=== PATIENT | male | born 1955 | race Caucasian/White ===

== ENCOUNTER 2021-08-17 17:33 | Inpatient (IN) ==
[2021-08-17 19:03] LABS: Urine Benzodiazepine Screen None Detected (None Detect); Urine Cannabinoids Screen None Detected (None Detect); Urine Opiates Screen None Detected (None Detect)
[2021-08-17 19:23] LABS: Urine Appearance Clear; Urine Bacteria Absent (Absent); Urine Bilirubin Negative (Negative); Urine Blood 2+ (Negative); Urine Color Yellow; Urine Glucose Negative (Negative); Urine Ketones Trace (Negative); Urine Nitrite Negative (Negative); Urine Protein Negative (Negative); Urine Red Blood Cell Trace(0-2/hpf) (Absent); Urine Specific Gravity 1.004 (1.002-1.030); Urine Urobilinogen Negative (Negative); Urine White Blood Cell Trace(0-5/hpf) (Absent)
[2021-08-17 22:32] LABS: ABS Eosinophils 0.1 10^3/ul (0-0.6); ABS Lymphocytes 1.8 10^3/ul (1.0-4.8); ABS Monocytes 0.7 10^3/ul (0-0.8); ABS Neutrophils 4.1 10^3/ul (1.5-7.7); Eosinophil % 1.4 %; Hematocrit 49 % (42-52); Hemoglobin 17.2 g/dL (14.0-18.0); Lymphocyte % 26.8 %; Mean Corpuscular HGB Conc 35 g/dL (31-36); Mean Corpuscular Hemoglobin 30 pg (27-31); Mean Corpuscular Volume 86 fL (80-94); Mean Platelet Volume 7.9 fL (7.4-10.4); Nucleated Red Blood Cells % 0.2; Platelet Count 177 10^3/uL (150-450); Red Blood Count 5.72 10^6 /uL (4.18-5.48); Red Cell Distribution Width 13 % (10-15); White Blood Count 6.7 10^3/uL (3.5-10.8)
[2021-08-17 22:54] LABS: ALT 29 U/L (7-52); AST 26 U/L (13-39); Acetaminophen < 15 mcg/mL; Albumin 4.1 g/dL (3.2-5.2); Albumin/Globulin Ratio 1.4 (1-3); Alcohol, S 96 mg/dL (<13); Alkaline Phosphatase 81 U/L (35-149); Anion Gap 13 mmol/L (2-11); Blood Urea Nitrogen 11 mg/dL (6-24); CO2 Carbon Dioxide 23 mmol/L (22-32); Calcium 9.5 mg/dL (8.6-10.3); Chloride 105 mmol/L (101-111); Glucose 85 mg/dL (70-100); Potassium 3.9 mmol/L (3.5-5.0); Salicylate < 2.50 mg/dL (<30); Sodium 141 mmol/L (135-145); Total Protein 7.1 g/dL (6.4-8.9); eGFR CKD-EPI 96.3 (>60)
[2021-08-17 23:07] LABS: TSH Ultra Thyroid Stim Horm 0.91 mcIU/mL (0.34-5.60)
[2021-08-18] MEDS ORDERED: Al Hydrox/Mg Hydrox/Simet LIQ 30 ML UDC PO PRN (00:02)
[2021-08-18] MEDS ORDERED: Polyethylene Glycol 3350 17 GM PACKET PO PRN (00:09)
[2021-08-18] MEDS: Aspirin EC 81 mg TAB.EC (enteric coated) PO SCH (08:30)
[2021-08-18] MEDS: Vitamin THERAPEUTIC TAB PO SCH (08:32)
[2021-08-19 08:14] LABS: HDL Cholesterol 35.1 mg/dL
[2021-08-19] MEDS: Aspirin EC 81 mg TAB.EC (enteric coated) PO SCH (08:30)
[2021-08-19] MEDS: Vitamin THERAPEUTIC TAB PO SCH (08:33)
[2021-08-20] MEDS: Aspirin EC 81 mg TAB.EC (enteric coated) PO SCH (08:54)
[2021-08-20] MEDS: Vitamin THERAPEUTIC TAB PO SCH (08:56)
[2021-08-21] MEDS: Vitamin THERAPEUTIC TAB PO SCH (07:46)
[2021-08-21] MEDS: Aspirin EC 81 mg TAB.EC (enteric coated) PO SCH (07:47)
[2021-08-22 08:08] VITALS: BP 117/75
[2021-08-22] MEDS: Aspirin EC 81 mg TAB.EC (enteric coated) PO SCH (08:20)
[2021-08-22] MEDS: Vitamin THERAPEUTIC TAB PO SCH (08:20)
== END 2021-08-22 14:00 | disposition home or self-care (01) | DRG 881 ==
LOC: ED 17:33 → EDHOLD 21:30 → BSU 08-18 00:16
PROVIDERS: ADMIT Psychiatry & Neurology Psychiatry; ATTEND Student in an Organized Health Care Education/Training Program